=== PATIENT | male | born 1995 | race Caucasian/White ===

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

== ENCOUNTER 2019-01-27 16:00 | Emergency (ER) | payer BC ==
[2019-01-27 16:21] VITALS: BP 151/60
--- NOTE | 2019-01-27 16:38 | UC ---
Throat Pain/Nasal José HPI - HPI Summary HPI Summary: 23-year-old male presents with complaints of sore throat. Its approximately one week ago he woke up after a night of drinking with a sore throat and then later in the day began feeling a little short of breath. States he felt panicked spoke with his mother who called and down and his breathing got better. States the sore throat subsided and then returned again yesterday. Today he noticed some red spots on the back of his throat and thought he should be evaluated. Denies fever, chills, nasal congestion, ear pain, cough, abdominal pain, nausea, or vomiting. - History of Current Complaint Chief Complaint: UCGeneralIllness Stated Complaint: ST,SPOTS IN THROAT Time Seen by Provider: 01/27/19 16:22 Hx Obtained From: Patient Pain Intensity: 0 - Allergies/Home Medications Allergies/Adverse Reactions: Allergies Allergy/AdvReac Type Severity Reaction Status Date / Time lactose intollerent Allergy Mild GI Upset Uncoded 01/27/19 16:22 Home Medications: Home Medications Ibuprofen TAB* [Advil TAB*] 4 tab PO ONCE 01/27/19 [History Confirmed 01/27/19] guaiFENesin ER TAB [Mucinex*] 1 tab PO ONCE 01/27/19 [History Confirmed 01/27/19 ] PMH/Surg Hx/FS Hx/Imm Hx Previously Healthy: Yes - Denies significant PMH - Surgical History Surgical History: Yes Surgery Procedure, Year, and Place: right foot surgery - Family History Known Family History: Positive: Non-Contributory - Social History Occupation: Employed Full-time Lives: With Family Alcohol Use: Weekly Substance Use Type: None Smoking Status (MU): Never Smoked Tobacco - Immunization History Vaccination Up to Date: Yes Review of Systems All Other Systems Reviewed And Are Negative: Yes Constitutional: Negative: Fever, Chills, Fatigue Skin: Negative: Rash Eyes: Negative: Drainage, Eye Redness ENT: Positive: Sore Throat. Negative: Ear Ache, Nasal Discharge, Sinus Congestion, Sinus Pain/Tenderness Respiratory: Positive: Shortness Of Breath. Negative: Cough Cardiovascular: Negative: Palpitations, Chest Pain Gastrointestinal: Negative: Abdominal Pain, Vomiting, Nausea Genitourinary: Positive: Negative Musculoskeletal: Positive: Negative Neurological: Positive: Negative Is Patient Immunocompromised?: No Physical Exam - Summary Physical Exam Summary: GENERAL APPEARANCE: Well developed, well nourished, alert and cooperative, and appears to be in no acute distress. EYES: Conjunctiva clear. No drainage. EARS: External auditory canals and tympanic membranes clear, hearing grossly intact. NOSE: No nasal discharge. THROAT: Mild pharyngeal erythema. No tonsilar inflammation, swelling, exudate, or lesions. Uvula midline. NECK: Neck supple, non-tender without lymphadenopathy. CARDIAC: Normal S1 and S2. No S3, S4 or murmurs. Rhythm is regular. There is no peripheral edema, cyanosis or pallor. Extremities are warm and well perfused. Capillary refill is less than 2 seconds. Peripheral pulses intact. LUNGS: Clear to auscultation without rales, rhonchi, wheezing or diminished breath sounds. ABDOMEN: Positive bowel sounds. Soft, nondistended, nontender. No guarding or rebound. No masses or hepatosplenomegally. MUSKULOSKELETAL: ROM intact to all extremities. No joint erythema or tenderness. Normal muscular development. Normal gait. SKIN: Skin normal color, texture and turgor with no lesions or eruptions. Triage Information Reviewed: Yes Vital Signs: Initial Vital Signs Temp 98.2 F 01/27/19 16:15 Pulse 79 01/27/19 16:15 Resp 17 01/27/19 16:15 BP 151/60 01/27/19 16:15 Pulse Ox 100 01/27/19 16:15 Vital Signs Reviewed: Yes Throat Pain/Nasal Course/Dx - Course Course Of Treatment: 23-year-old male presents with complaints of sore throat. Its approximately one week ago he woke up after a night of drinking with a sore throat and then later in the day began feeling a little short of breath. States he felt panicked spoke with his mother who called and down and his breathing got better. States the sore throat subsided and then returned again yesterday. Today he noticed some red spots on the back of his throat and thought he should be evaluated. Denies fever, chills, nasal congestion, ear pain, cough, abdominal pain, nausea, or vomiting. Afebrile. Hypertensive otherwise vital signs stable. Patient had mild pharyngeal erythema without tonsillar swelling or exudate, no cervical lymphadenopathy, clear bilateral breath sounds, otherwise unremarkable exam. Rapid strep test was negative. Recommending symptomatic treatment for viral pharyngitis. Patient states he does not currently have a primary care provider therefore he was given the contact information for the [facility] physician referral service to assist him with establishing. He is to return here in 5-7 days if symptoms are not improving. Anticipatory guidance and warning symptoms requiring immediate evaluation in the emergency room were reviewed with the patient. Verbalizes understanding and agrees with plan of care. - Differential Dx/Diagnosis Differential Diagnosis/HQI/PQRI: Mononucleosis, Pharyngitis, URI Provider Diagnosis: Acute viral pharyngitis Discharge ED - Sign-Out/Discharge Documenting (check all that apply): Patient Departure All imaging exams completed and their final reports reviewed: No Studies - Discharge Plan Condition: Stable Disposition: HOME Patient Education Materials: Pharyngitis (ED) Referrals: Jeff Howard MD [Primary Care Provider] - [facility] [place] PHYSICIAN REFERRAL [Outside] Additional Instructions: Your rapid strep test in the clinic today was negative. Your symptoms are likely from a viral infection. Viral infections do not respond to antibiotics and are limited to the treatment of symptoms. Viral infections typically run their course in 7-10 days but may take up to 2 weeks. Drink plenty of fluids to avoid dehydration especially if you are running any fever. Use salt water gargles several times a day. Take over the counter acetaminophen (Tylenol) or ibuprofen (Advil, Motrin) according to directions as needed for pain or fever. You may also use Chloraseptic spray or Cepacol lonzenges according to directions which contain a numbing medication and can provide some temporary relief from your sore throat. Return here in 5-7 days if symptoms persist. I have given you the contact information for the [facility] physician referral service to assist you with establishing with a primary care provider. Seek immediate medical attention in the emergency room if you have fever greater than 100.5 F despite taking acetaminophen or ibuprofen, are unable to swallow or develop drooling, are unable to open your mouth fully, are unable to eat or drink, have pain that is not relieved with over the counter pain medication, or have any difficulty breathing. - Billing Disposition and Condition Condition: STABLE Disposition: Home
== END 2019-01-27 16:57 | disposition home or self-care (01) ==
LOC: UCCORT 16:00
DX: J02.8 Acute pharyngitis due to other specified organisms (principal)
CPT/HCPCS: 87651; 99211; G0463

== ENCOUNTER 2019-02-22 13:45 | Emergency (ER) | payer BC, OTHER ==
[2019-02-22 14:11] VITALS: BP 141/78
--- NOTE | 2019-02-22 14:20 | UC ---
Throat Pain/Nasal José HPI - HPI Summary HPI Summary: 23 yo male presents with sinus symptoms. He tells me that for the last week he has had sinus pain/pressure/congestion. He has been taking OTC mucinex, sudafed , and dayquill with no relief. Mucus is green and yellow. Has felt feverish, but has not taken his temperature. Denies sore throat, cough, chest congestion, rash. - History of Current Complaint Chief Complaint: UCGeneralIllness Stated Complaint: SINUS COMPLAINT Time Seen by Provider: 02/22/19 14:20 Hx Obtained From: Patient Onset/Duration: Gradual Onset Severity: Mild Pain Intensity: 3 Pain Scale Used: 0-10 Numeric - Allergies/Home Medications Allergies/Adverse Reactions: Allergies Allergy/AdvReac Type Severity Reaction Status Date / Time lactose intollerent Allergy Mild GI Upset Uncoded 02/22/19 14:12 Home Medications: Home Medications D-Methorphan/PE/Acetaminophen [Day Time Cold-Flu Relief Liq] 296 ml PO DAILY [History Confirmed 02/22/19] PMH/Surg Hx/FS Hx/Imm Hx - Additional Past Medical History Additional PMH: None - Surgical History Surgical History: Yes Surgery Procedure, Year, and Place: right foot surgery - Family History Known Family History: Positive: Non-Contributory - Social History Occupation: Student Lives: Dormitory/Roommates Alcohol Use: Weekly Substance Use Type: None Smoking Status (MU): Never Smoked Tobacco - Immunization History Vaccination Up to Date: Yes Review of Systems All Other Systems Reviewed And Are Negative: No Constitutional: Positive: Negative Skin: Positive: Negative Eyes: Positive: Negative ENT: Positive: Nasal Discharge, Sinus Congestion, Sinus Pain/Tenderness Respiratory: Positive: Negative Cardiovascular: Positive: Negative Gastrointestinal: Positive: Negative Neurological: Positive: Negative Psychological: Positive: Negative Physical Exam - Summary Physical Exam Summary: GENERAL: NAD. WDWN. No pain distress. SKIN: No rashes, sores, lesions, or open wounds. HEENT: Head: AT/NC Eyes: EOM intact. Conjunctiva clear without inflammation or discharge. Ears: Hearing grossly normal. TMs intact, no bulging, erythema, or edema. Nose: Nasal mucosa mildly swollen and erythematous with yellow/ clear discharge. TTP maxillary and frontal sinus. Positive post nasal drip Throat: Posterior oropharynx without exudates, erythema, or tonsillar enlargement. Uvula midline. NECK: Supple. Nontender. No lymphadenopathy. CHEST: CTAB. No r/r/w. No accessory muscle use. Breathing comfortably and in no distress. CV: RRR. Pulses intact. NEURO: Alert. PSYCH: Age appropriate behavior. Triage Information Reviewed: Yes Vital Signs: Initial Vital Signs Temp 98.7 F 02/22/19 14:09 Pulse 65 02/22/19 14:09 Resp 14 02/22/19 14:09 BP 141/78 02/22/19 14:09 Pulse Ox 99 02/22/19 14:09 Vital Signs Reviewed: Yes Throat Pain/Nasal Course/Dx - Course Course Of Treatment: Sinusitis - Differential Dx/Diagnosis Provider Diagnosis: Sinusitis Discharge ED - Sign-Out/Discharge Documenting (check all that apply): Patient Departure All imaging exams completed and their final reports reviewed: No Studies - Discharge Plan Condition: Stable Disposition: HOME Prescriptions: Amoxicillin PO (*) [Amoxicillin 875 MG (*)] 875 mg PO BID #14 tab Patient Education Materials: Sinusitis (ED) Referrals: No Primary Care Phys,NOPCP [Primary Care Provider] - Additional Instructions: If you develop a fever, shortness of breath, chest pain, new or worsening symptoms - please call your PCP or go to the ED immediately. - Billing Disposition and Condition Condition: STABLE Disposition: Home - Attestation Statements Provider Attestation: I was available for consult. This patient was seen by the ROXANNE. The patient was not presented to, seen by, or examined by me. -Stephanie
== END 2019-02-22 14:36 | disposition home or self-care (01) ==
LOC: UCCORT 13:45
DX: J32.9 Chronic sinusitis, unspecified (principal); Z91.011 Allergy to milk products
CPT/HCPCS: 99212; G0463